=== PATIENT | male | born 1970 | race Caucasian/White ===

== ENCOUNTER 2016-11-14 09:55 | Emergency (ER) | payer OTHER ==
[~2016-11-14] VITALS: Ht 182.9 cm; Wt 86.2 kg
[~2016-11-14 09:55] MED LIST: NO MEDS
[2016-11-14 10:03] VITALS: BP 132/80
[2016-11-14] MEDS ORDERED: ALPR0.5T PO (10:07)
[2016-11-14] MEDS ORDERED: IBUPROFEN 600 MG TABLET PO ONE ×2 (10:21→10:30)
== END 2016-11-14 10:29 | disposition home or self-care (01) ==
LOC: ER 09:58
DX: M54.5 Low back pain (principal); F41.9 Anxiety disorder, unspecified; F17.200 Nicotine dependence, unspecified, uncomplicated
CPT/HCPCS: A4606; Z7610

== ENCOUNTER 2021-12-28 09:32 | Emergency (ER) | payer BC, OTHER ==
[~2021-12-28] VITALS: Ht 180.3 cm; Wt 90.7 kg
[~2021-12-28 09:32] MED LIST changes: +ALPR0.5T PO
--- NOTE | 2021-12-28 09:47 | NUR ---
Dr. Karimi at bedside
--- NOTE | 2021-12-28 12:10 | NUR ---
venous doppler study - negative for DVT
--- NOTE | 2021-12-28 12:11 | NUR ---
Patient discharged to home in stable condition. Written and verbal after care instructions given. Patient verbalizes understanding of instruction.
[2021-12-28 12:12] VITALS: BP 143/90
== END 2021-12-28 12:13 | disposition home or self-care (01) ==
LOC: ER 09:43
DX: I83.893 Varicose veins of bilateral lower extremities with other complications (principal); F41.9 Anxiety disorder, unspecified; F17.200 Nicotine dependence, unspecified, uncomplicated; Z79.899 Other long term (current) drug therapy
CPT/HCPCS: 93971-TC

== ENCOUNTER 2022-04-15 10:50 | Emergency (ER) | payer BC, OTHER ==
[~2022-04-15] VITALS: Ht 180.3 cm; Wt 90.7 kg
[2022-04-15 11:49] LABS: BASOPHILS % (AUTO) 0.2 % (0.0-2.0); EOSINOPHILS % (AUTO) 1.1 % (0.0-6.0); HEMATOCRIT 44 % (39-51); HEMOGLOBIN 14.7 g/dL (13.5-17.5); LYMPHOCYTES # (AUTO) 1.8 K/uL (0.8-4.8); LYMPHOCYTES % (AUTO) 23.7 % (20.0-44.0); MEAN CORPUSCULAR HGB CONC 33 g/dl (31.0-36.0); MEAN CORPUSCULAR VOLUME 91 fL (80-96); MONOCYTES # (AUTO) 0.8 K/uL (0.1-1.30); MONOCYTES % (AUTO) 10.9 % (2.0-12.0); NEUTROPHILS # (AUTO) 4.8 K/uL (1.8-8.9); NEUTROPHILS % (AUTO) 64.1 % (43.0-81.0); PLATELET COUNT (AUTO) 313 K/uL (150-450); RED BLOOD CELL COUNT(AUTO) 4.81 MIL/uL (4.5-6.0); WHITE BLOOD COUNT (AUTO) 7.4 K/uL (4.3-11.0)
[2022-04-15 11:56] LABS: CALCIUM, SERUM 8.4 mg/dL (8.5-10.1); CREATININE 0.7 mg/dL (0.6-1.3); POTASSIUM 3.9 mmol/L (3.5-5.1)
[2022-04-15 12:02] LABS: ALBUMIN 3.9 g/dL (3.4-5.0); BILIRUBIN,DIRECT 0.1 mg/dL (0.0-0.2); BILIRUBIN,TOTAL 0.5 mg/dL (0.2-1.0); TOTAL PROTEIN, SERUM 6.9 g/dL (6.4-8.2)
--- NOTE | 2022-04-15 12:29 | NUR ---
Patient discharged to home in stable condition. Written and verbal after care instructions given. Patient verbalizes understanding of instruction.
[2022-04-15 12:30] VITALS: BP 128/84
== END 2022-04-15 12:31 | disposition home or self-care (01) ==
LOC: ER 10:52
DX: K92.2 Gastrointestinal hemorrhage, unspecified (principal); I10 Essential (primary) hypertension; F41.9 Anxiety disorder, unspecified; E03.9 Hypothyroidism, unspecified; F17.200 Nicotine dependence, unspecified, uncomplicated; Z98.890 Other specified postprocedural states; Z79.899 Other long term (current) drug therapy
CPT/HCPCS: 36415; 80048-TC; 80076-TC; 83690-TC; 85025-TC

== ENCOUNTER 2024-03-12 09:25 | Emergency (ER) | payer BC ==
[~2024-03-12] VITALS: Ht 180.3 cm; Wt 95.3 kg
[2024-03-12] MEDS ORDERED: ONDANSETRON HCL/PF 4 MG/2 ML VIAL ONE (09:42)
[2024-03-12] MEDS ORDERED: MORPHINE SULFATE INJ 4 MG/ML DISP.SYRIN ONE ×2 (09:43→13:02)
[2024-03-12] MEDS: ONDANSETRON HCL/PF 4 MG/2 ML VIAL IVP ONE (10:00)
[2024-03-12] MEDS: MORPHINE SULFATE INJ 2 MG/ML DISP.SYRIN IV ONE ×2 (10:02→13:00)
[2024-03-12 10:11] LABS: BASOPHILS % (AUTO) 0.4 % (0.0-2.0); EOSINOPHILS # (AUTO) 0.2 K/uL (0.0-0.7); EOSINOPHILS % (AUTO) 3.9 % (0.0-6.0); HEMATOCRIT 45 % (39-51); LYMPHOCYTES # (AUTO) 1.7 K/uL (0.8-4.8); LYMPHOCYTES % (AUTO) 36.3 % (20.0-44.0); MEAN CORPUSCULAR HEMOGLOBIN 32 PG (26.0-33.0); MEAN CORPUSCULAR HGB CONC 33 g/dl (31.0-36.0); MEAN CORPUSCULAR VOLUME 96 fL (80-96); MONOCYTES # (AUTO) 0.5 K/uL (0.1-1.30); MONOCYTES % (AUTO) 9.5 % (2.0-12.0); NEUTROPHILS # (AUTO) 2.4 K/uL (1.8-8.9); NEUTROPHILS % (AUTO) 49.9 % (43.0-81.0); PLATELET COUNT (AUTO) 244 K/uL (150-450); RED BLOOD CELL COUNT(AUTO) 4.67 MIL/uL (4.5-6.0); RED CELL DISTRIBUTION WIDTH 15.9 % (11.5-15.0); WHITE BLOOD COUNT (AUTO) 4.8 K/uL (4.3-11.0)
[2024-03-12 10:13] LABS: APPEARANCE,URINE CLEAR (CLEAR); BILIRUBIN,URINE NEGATIVE (NEGATIVE); BLOOD, URINE NEGATIVE Ery/uL (NEGATIVE); COLOR,URINE YELLOW (YELLOW); KETONES,URINE NEGATIVE (NEGATIVE); LEUKOCYTE ESTERASE ,URINE NEGATIVE (NEGATIVE); NITRITE, URINE NEGATIVE (NEGATIVE); PROTEIN,URINE NEGATIVE (NEGATIVE); UGLUCOSE NEGATIVE (NEGATIVE); UROBILINOGEN,URINE 0.2 EU/dL (0.2)
[2024-03-12 10:33] LABS: CALCIUM, SERUM 9.3 mg/dL (8.5-10.1); CREATININE 0.7 mg/dL (0.6-1.3); POTASSIUM 3.7 mmol/L (3.5-5.1)
[2024-03-12 10:39] LABS: BILIRUBIN,DIRECT 0.2 mg/dL (0.0-0.2); BILIRUBIN,TOTAL 0.7 mg/dL (0.2-1.0); TOTAL PROTEIN, SERUM 6.9 g/dL (6.4-8.2)
[2024-03-12] MEDS ORDERED: IV NS 0.9% 250 ML IV ONE (10:57)
[2024-03-12] MEDS ORDERED: CT SWABBABLE VALVE TRANS SET 1 EA INFUS.SET MC ONE (10:57)
[2024-03-12] MEDS ORDERED: IOHEXOL-300 100 ML VIAL IV ONE (10:57)
[2024-03-12] MEDS ORDERED: OXYC-128 PO (13:10)
[2024-03-12] MEDS ORDERED: CARI350T PO (13:10)
[2024-03-12 13:25] VITALS: BP 13/90; TEMP 98.5; O2SAT 94
== END 2024-03-12 13:20 | disposition home or self-care (01) ==
LOC: ER 09:26
DX: M54.50 Low back pain, unspecified (principal); G89.29 Other chronic pain; I10 Essential (primary) hypertension; F41.9 Anxiety disorder, unspecified; F17.210 Nicotine dependence, cigarettes, uncomplicated; E03.9 Hypothyroidism, unspecified; Z98.890 Other specified postprocedural states
CPT/HCPCS: 99285; 74177; 96374; 96375; 96376; 85025; 80048; 83690; 80076; 81003; 36415; J2270 ×2; J2405; J7050; Q9967

== ENCOUNTER 2024-03-30 13:45 | Inpatient (IN) | payer BC ==
[~2024-03-30] VITALS: Ht 180.3 cm; Wt 99.8 kg
[~2024-03-30 13:45] MED LIST changes: +CARI350T PO; +OXYC-128 PO
[2024-03-30 15:14] LABS: BASOPHILS % (AUTO) 0.2 % (0.0-2.0); EOSINOPHILS # (AUTO) 0.1 K/uL (0.0-0.7); EOSINOPHILS % (AUTO) 2.5 % (0.0-6.0); HEMATOCRIT 44 % (39-51); HEMOGLOBIN 14.7 g/dL (13.5-17.5); LYMPHOCYTES # (AUTO) 1.9 K/uL (0.8-4.8); LYMPHOCYTES % (AUTO) 32.9 % (20.0-44.0); MEAN CORPUSCULAR HEMOGLOBIN 33 PG (26.0-33.0); MEAN CORPUSCULAR HGB CONC 33 g/dl (31.0-36.0); MEAN CORPUSCULAR VOLUME 99 fL (80-96); MONOCYTES # (AUTO) 0.6 K/uL (0.1-1.30); MONOCYTES % (AUTO) 9.9 % (2.0-12.0); NEUTROPHILS # (AUTO) 3.2 K/uL (1.8-8.9); NEUTROPHILS % (AUTO) 54.5 % (43.0-81.0); PLATELET COUNT (AUTO) 241 K/uL (150-450); RED BLOOD CELL COUNT(AUTO) 4.49 MIL/uL (4.5-6.0); RED CELL DISTRIBUTION WIDTH 16.4 % (11.5-15.0); WHITE BLOOD COUNT (AUTO) 5.8 K/uL (4.3-11.0)
[2024-03-30] MEDS: IV NS 0.9% 1,000 ML BAG IV ONE (15:30)
[2024-03-30 15:36] LABS: CALCIUM, SERUM 9.4 mg/dL (8.5-10.1); CARBON DIOXIDE 28 mmol/L (21-32); CHLORIDE 106 mmol/L (98-107); CREATININE 0.8 mg/dL (0.6-1.3); GLUCOSE 84 mg/dL (74-106); SODIUM SERUM 142 mmol/L (136-145); UREA NITROGEN, BLOOD 16 mg/dL (7-18)
[2024-03-30 15:48] LABS: ALANINE AMINOTRANSFERASE 56 U/L (12-78); ALBUMIN 4.1 g/dL (3.4-5.0); ALKALINE PHOSPHATASE 54 U/L (46-116); ASPARTATE AMINOTRANSFERASE 25 U/L (15-37); BILIRUBIN,DIRECT 0.2 mg/dL (0.0-0.2); BILIRUBIN,TOTAL 0.6 mg/dL (0.2-1.0); NT-PRO BNP 58 pg/mL (0-125); TOTAL PROTEIN, SERUM 7.1 g/dL (6.4-8.2)
[2024-03-30] MEDS ORDERED: ALPR1TAB7 PO (16:05)
[2024-03-30] MEDS ORDERED: AMLO5TAB4 PO (16:05)
[2024-03-30] MEDS ORDERED: LEVO50TA8 PO (16:05)
[2024-03-30] MEDS ORDERED: ROSU10TA2 PO (16:05)
[2024-03-30] MEDS ORDERED: SUNI50CA PO (16:05)
[2024-03-30] MEDS ORDERED: MORPHINE SULFATE INJ 2 MG/ML DISP.SYRIN IV PRN (18:00)
[2024-03-30] MEDS ORDERED: ONDANSETRON HCL/PF 4 MG/2 ML VIAL IVP PRN (18:00)
[2024-03-30] MEDS ORDERED: ALPRAZOLAM 1 MG TABLET PO PRN (18:00)
[2024-03-30] MEDS ORDERED: ACETAMINOPHEN 325 MG TABLET PO PRN (18:00)
[2024-03-30 20:00] VITALS: BP 142/95; TEMP 98.2; O2SAT 95
[2024-03-30] MEDS: ENOXAPARIN SODIUM 40 MG/0.4 ML DISP.SYRIN SQ SCH (21:45)
[2024-03-30] MEDS: AMLODIPINE BESYLATE 5 MG TABLET PO SCH (21:46)
[2024-03-30] MEDS: ATORVASTATIN 40 MG TABLET PO SCH (21:46)
[2024-03-31] VITALS: BP 120/65; TEMP 98.1; O2SAT 97
[2024-03-31 04:00] VITALS: BP 131/91; TEMP 98; O2SAT 96
[2024-03-31 07:33] LABS: BASOPHILS % (AUTO) 0.2 % (0.0-2.0); EOSINOPHILS # (AUTO) 0.3 K/uL (0.0-0.7); EOSINOPHILS % (AUTO) 6.4 % (0.0-6.0); HEMATOCRIT 40 % (39-51); HEMOGLOBIN 13.5 g/dL (13.5-17.5); LYMPHOCYTES % (AUTO) 48.6 % (20.0-44.0); MEAN CORPUSCULAR HEMOGLOBIN 33 PG (26.0-33.0); MEAN CORPUSCULAR HGB CONC 34 g/dl (31.0-36.0); MEAN CORPUSCULAR VOLUME 98 fL (80-96); MONOCYTES # (AUTO) 0.4 K/uL (0.1-1.30); MONOCYTES % (AUTO) 10.1 % (2.0-12.0); NEUTROPHILS # (AUTO) 1.4 K/uL (1.8-8.9); NEUTROPHILS % (AUTO) 34.7 % (43.0-81.0); PLATELET COUNT (AUTO) 212 K/uL (150-450); RED BLOOD CELL COUNT(AUTO) 4.07 MIL/uL (4.5-6.0); RED CELL DISTRIBUTION WIDTH 16.4 % (11.5-15.0)
[2024-03-31] MEDS: LEVOTHYROXINE SODIUM 50 MCG TABLET PO SCH (07:35)
[2024-03-31 07:56] LABS: ALBUMIN 3.4 g/dL (3.4-5.0); BILIRUBIN,TOTAL 0.6 mg/dL (0.2-1.0); CALCIUM, SERUM 8.2 mg/dL (8.5-10.1); CREATININE 0.7 mg/dL (0.6-1.3); MAGNESIUM 2.1 mg/dL (1.8-2.4); PHOSPHORUS 2.8 mg/dL (2.5-4.9); POTASSIUM 3.7 mmol/L (3.5-5.1); TOTAL PROTEIN, SERUM 6.1 g/dL (6.4-8.2)
[2024-03-31 08:29] VITALS: BP 157/105; TEMP 98.2
[2024-03-31 08:43] VITALS: BP 167/100
[2024-03-31] MEDS: hydrALAZINE HCL IV 20 MG VIAL IV PRN (08:43)
== END 2024-03-31 10:06 | disposition home or self-care (01) | DRG 641 ==
LOC: ER 14:05 → TELE1 17:22
PROVIDERS: ADMIT Internal Medicine; ATTEND Internal Medicine
DX: E86.0 Dehydration (principal); E03.9 Hypothyroidism, unspecified; E78.5 Hyperlipidemia, unspecified; F17.210 Nicotine dependence, cigarettes, uncomplicated; I25.10 Atherosclerotic heart disease of native coronary artery without angina pectoris; I10 Essential (primary) hypertension; D48.19 Other specified neoplasm of uncertain behavior of connective and other soft tissue; R55 Syncope and collapse
CPT/HCPCS: 36415; 70450-TC; 71045-TC; 80048-TC; 80053-TC; 80076-TC; 83735-TC; 83880; 84100-TC; 84484-TC; 85025-TC; 93307-TC; G0378; J0360; J1650; J7030

== ENCOUNTER 2025-04-13 12:13 | Emergency (ER) | payer BC ==
[~2025-04-13] VITALS: Ht 182.9 cm; Wt 99.8 kg
[~2025-04-13 12:13] MED LIST changes: -ALPR0.5T PO; +ALPR1TAB7 PO; +AMLO5TAB4 PO; -CARI350T PO; +LEVO50TA8 PO; -NO MEDS; -OXYC-128 PO; +ROSU10TA2 PO; +SUNI50CA PO
[2025-04-13] MEDS ORDERED: HYDR-3972 PO (16:39)
[2025-04-13 16:51] VITALS: BP 124/82; TEMP 98.2; O2SAT 99
== END 2025-04-13 16:52 | disposition home or self-care (01) ==
LOC: ER 12:15
DX: S69.92XA Unspecified injury of left wrist, hand and finger(s), initial encounter (principal); S30.0XXA Contusion of lower back and pelvis, initial encounter; E03.9 Hypothyroidism, unspecified; I10 Essential (primary) hypertension; W01.0XXA Fall on same level from slipping, tripping and stumbling without subsequent striking against object, initial encounter; Y92.89 Other specified places as the place of occurrence of the external cause; Z79.890 Hormone replacement therapy; G89.29 Other chronic pain; Z79.899 Other long term (current) drug therapy; Z85.00 Personal history of malignant neoplasm of unspecified digestive organ; Z98.890 Other specified postprocedural states; Z87.891 Personal history of nicotine dependence; M25.532 Pain in left wrist
CPT/HCPCS: 73110